=== PATIENT | female | born 1985 | race Caucasian/White ===

== ENCOUNTER 2017-01-18 14:36 | Emergency (ER) | payer MEDICAID, OTHER ==
[~2017-01-18] VITALS: Ht 154.9 cm; Wt 95.5 kg
[2017-01-18 16:23] LABS: APPEARANCE,URINE CLEAR (CLEAR); GLUCOSE, URINE (UA) NEGATIVE (NEGATIVE); KETONES,URINE NEGATIVE (NEGATIVE); LEUKOCYTE ESTERASE ,URINE SMALL (NEGATIVE); OCCULT BLOOD,URINE TRACE (NEGATIVE); PROTEIN,URINE NEGATIVE (NEGATIVE)
[2017-01-18 16:32] LABS: ADD UA MICROSCOPIC YES
[2017-01-18 16:34] LABS: RBC,URINE 0-2 /HPF (0-2); SQUAMOUS EPITHELIAL CELL,UR Few /LPF (None Seen)
[2017-01-18 16:44] VITALS: BP 113/67
[2017-01-18] MEDS ORDERED: LIDOCAINE HCL/PF 1% 2 ML VIAL IM ONE (17:15)
[2017-01-18] MEDS ORDERED: CefTRIAXone SODIUM 1 GM/VIAL IM ONE (17:15)
[2017-01-18] MEDS ORDERED: PHENAZOPYRIDINE HCL 100 MG TABLET PO ONE (17:15)
== END 2017-01-18 17:48 | disposition home or self-care (01) ==
LOC: EMS 14:39
DX: N39.0 Urinary tract infection, site not specified (principal); E66.9 Obesity, unspecified; Z68.39 Body mass index [BMI] 39.0-39.9, adult
CPT/HCPCS: 99283